=== PATIENT | female | born 1985 ===

== ENCOUNTER 2017-07-24 21:54 | Emergency (ER) | payer MEDICAID ==
[2017-07-24 21:54] VITALS: BMI 21.5
[2017-07-24 21:59] VITALS: BP 122/78; PULSE 86; RESP 16; TEMP 98; O2SAT 97
--- NOTE | 2017-07-24 22:04 | ED PDOC ---
Upper Extremity Pain/Injury Time Seen by Provider: 07/24/17 22:02 Chief Complaint (Nursing): Upper Extremity Problem/Injury Chief Complaint (Provider): right arm pain, neck pain History Per: Patient Additional Complaint(s): 31-year-old right-hand dominant female presents with pain to right shoulder and right-side of neck that started last week. Patient denies trauma or injury but states that she carries a backpack on the right side of her back on a regular basis. Patient has been taking Advil which has provided minimal relief pain. No associated chest pain, shortness of breath or dyspnea on exertion. Patient denies any numbness or tingling to right arm. Past Medical History Reviewed: Historical Data, Nursing Documentation, Vital Signs Vital Signs: Last Vital Signs Temp 98.0 F 07/24/17 21:57 Pulse 86 07/24/17 21:57 Resp 16 07/24/17 21:57 BP 122/78 07/24/17 21:57 Pulse Ox 97 07/24/17 21:57 - Medical History PMH: Asthma, Hypothyroidism - Surgical History Other surgeries: tubal ligation - Family History Family History: States: No Known Family Hx - Living Arrangements Living Arrangements: With Family - Social History Current smoker - smoking cessation education provided: Yes Alcohol: Social Drugs: Denies - Home Medications Home Medications: Ambulatory Orders Medication Instructions Recorded Albuterol Sulfate [Albuterol 1 puff NEB BID 09/15/14 Sulfate Hfa] Cetirizine HCl/Pse HCl [Zyrtec-D 5 1 tab PO DAILY 09/15/14 mg-120 mg] Fluticasone Nasal [Flonase] 2 spray SHANNEN Q12H 09/15/14 Fluticasone/Salmeterol 250/50 1 puff IH Q12H 09/15/14 [Advair Diskus 250/50] Levothyroxine [Synthroid] 0.05 mg PO DAILY 09/15/14 Multivitamin and [id number] 1 tab PO DAILY 09/15/14 [] Guaifenesin [Robitussin] 100 mg PO Q4H PRN #0 ml 09/17/14 predniSONE [predniSONE Tab] 10 mg PO DAILY #0 tab 09/17/14 Montelukast [Singulair] 10 mg PO DAILY 01/23/15 Vitamins6 [ 1 tab PO DAILY 01/23/15 Vitamin] Albuterol HFA [Ventolin HFA 90 2 puff IH Q4 PRN #1 inh 01/22/16 mcg/actuation (8 g)] Prednisone 50 mg PO DAILY #4 tablet 01/22/16 traMADol [Ultram] 50 mg PO Q6H PRN #15 tab 09/27/16 Cyclobenzaprine [Cyclobenzaprine 10 mg PO TID PRN #20 tab 07/24/17 HCl] Naproxen [Naprosyn] 500 mg PO BID #20 tab 07/24/17 traMADol [Ultram] 50 mg PO TID PRN #15 tab 07/24/17 - Allergies Allergies/Adverse Reactions: Allergies Allergy/AdvReac Type Severity Reaction Status Date / Time No Known Allergies Allergy Verified 09/15/14 11:17 Review of Systems ROS Statement: Except As Marked, All Systems Reviewed And Found Negative Cardiovascular: Negative for: Chest Pain Musculoskeletal: Positive for: Neck Pain, Shoulder Pain (right) Neurological: Negative for: Headache Physical Exam - Reviewed Nursing Documentation Reviewed: Yes Vital Signs Reviewed: Yes - Physical Exam Appears: Positive for: Well, Non-toxic, No Acute Distress Skin: Negative for: Rash Eye Exam: Positive for: Normal appearance Neck: Positive for: Pain On Movement Of Neck (Muscle spasm and tenderness to right lateral neck) Cardiovascular/Chest: Positive for: Regular Rate, Rhythm Respiratory: Positive for: Normal Breath Sounds Extremity: Positive for: Other (Diffuse tenderness to right anterior shoulder, full range of motion with pain, 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) Neurologic/Psych: Positive for: Alert, Oriented - Laboratory Results Urine POC: Negative (Patient declined test, she is currently menstruating and has also had tubal ligation, she is certain she is not ) - ECG O2 Sat by Pulse Oximetry: 97 Pulse Ox Interpretation: Normal - Other Rad Right shoulder and cervical spine x-ray X-Ray: Interpreted by Me, Viewed By Me X-Ray Interpretation: no fx, no dis Medical Decision Making Medical Decision Makin31 year old female with right shoulder and neck pain Plan: PO tramadol and flexeril X-ray right shoulder, cervical spine Patient states she feels better after medications given for pain. She is aware of x-ray results. All questions answered. Prescriptions provided for Naprosyn, Flexeril and tramadol. Patient was referred to orthopedist on-call for follow- up. Disposition - Clinical Impression Clinical Impression: Shoulder sprain, Cervical strain - Patient ED Disposition Is Patient to be Admitted: No Counseled Patient/Family Regarding: Studies Performed, Diagnosis, Need For Followup, Rx Given - Disposition Referrals: Tulio Alexander III, MD [Staff Provider] - Disposition: Routine/Home Disposition Time: 23:23 Condition: STABLE Additional Instructions: Take prescription medications as directed as needed for pain. Follow-up with orthopedist for any persistent symptoms. Prescriptions: Cyclobenzaprine [Cyclobenzaprine HCl] 10 mg PO TID PRN #20 tab PRN Reason: Muscle Spasm Naproxen [Naprosyn] 500 mg PO BID #20 tab traMADol [Ultram] 50 mg PO TID PRN #15 tab PRN Reason: Pain, Moderate (4-7) Instructions: Cervical Strain (DC), Shoulder Sprain (ED) Forms: [employer] Connect (Micronesian)
--- NOTE | 2017-07-25 11:11 | RAD ---
PROCEDURE: Cervical Spine Radiographs. HISTORY: Pain. COMPARISON: None. FINDINGS: BONES: Alignment maintained. No fracture. Dens Intact. DISC SPACES: Normal. SOFT TISSUES: Normal. No prevertebral soft tissue swelling. OTHER FINDINGS: None. IMPRESSION: Normal cervical spine radiographs Concordant results with the preliminary interpretation rendered by the emergency department physician procedure.
--- NOTE | 2017-07-25 11:14 | RAD ---
PROCEDURE: Radiographs of the Right Shoulder HISTORY: trauma Presenting with right upper extremity pain COMPARISON: None FINDINGS: BONES: Normal. No fracture. JOINTS: Normal. Glenohumeral and acromioclavicular joints preserved. No osteoarthritis. SOFT TISSUES: Normal. OTHER FINDINGS: None. IMPRESSION: Normal radiographs of the right shoulder. Concordant results with the preliminary interpretation rendered by the emergency department physician procedure.
== END 2017-07-24 23:47 | disposition home or self-care (01) ==
LOC: H.ER 21:54
DX: S16.1XXA Strain of muscle, fascia and tendon at neck level, initial encounter (principal); S43.401A Unspecified sprain of right shoulder joint, initial encounter; X50.9XXA Other and unspecified overexertion or strenuous movements or postures, initial encounter; Y92.89 Other specified places as the place of occurrence of the external cause; E03.9 Hypothyroidism, unspecified; J45.909 Unspecified asthma, uncomplicated

== ENCOUNTER 2017-08-29 08:59 | Emergency (ER) | payer MEDICAID ==
[2017-08-29 09:00] VITALS: BMI 21.5
[2017-08-29 09:19] VITALS: BP 114/69; RESP 22; TEMP 97; O2SAT 99
[2017-08-29] MEDS: Albuterol-Ipratrop 3 mg / 0.5 (3 ml) UD INH STA (09:47)
[2017-08-29 10:30] LABS: BASO % 1.2 % (0.0-2.0); EOS # 0.3 K/uL (0.0-0.7); EOS % 9.1 % (0.0-4.0); HEMATOCRIT 40.8 % (34.0-47.0); LYMPH # 1.7 K/uL (1.0-4.3); MEAN CELL VOLUME 91.9 fl (81.0-99.0); MEAN CORPUSCULAR HGB CONC 33.8 g/dL (33.0-37.0); MEAN PLATELET VOLUME 9.5 fl (7.2-11.7); MONO # 0.4 K/uL (0.0-0.8); MONO % 11.2 % (0.0-10.0); NEUT # 1.3 K/uL (1.8-7.0); NEUT % 33.5 % (50.0-75.0); NRBC % 1.6 % (0.0-0.0); RED CELL DISTRIBUTION WIDTH 12.8 % (11.5-14.5); WHITE BLOOD COUNT 3.8 K/uL (4.8-10.8)
[2017-08-29 10:34] VITALS: PULSE 69
[2017-08-29 10:34] LABS: ALB/GLOB RATIO 1.3 (1.0-2.1); ALKALINE PHOSPHATASE 56 U/L (38-126); ALT/SGPT 37 U/L (9-52); AST/SGOT 20 U/L (14-36); BILIRUBIN,TOTAL 0.3 mg/dl (0.2-1.3); BLOOD UREA NITROGEN 14 mg/dl (7-17); CALCIUM 9.2 mg/dL (8.4-10.2); CARBON DIOXIDE 25 mmol/L (22-30); CHLORIDE 106 mmol/L (98-107); GFR AFRICAN-AMERICAN > 60; GLUCOSE,RANDOM 92 mg/dL (65-105); PARTIAL THROMBOPLASTIN TIME 28.4 Seconds (25.6-37.1); SODIUM 140 mmol/l (132-148)
--- NOTE | 2017-08-29 12:07 | ED PDOC ---
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 Denies chest pain, hemoptysis, fever or syncope. Denies orthopnea or leg pain/ edema. Not on control and denies blood clots or cardiac disease in her or family history. She used her asthma pump after palpitations started and felt a little better. Went to her school RN who told her to come to ED. Past Medical History Reviewed: Historical Data, Nursing Documentation, Vital Signs Vital Signs: Last Vital Signs Temp 97 F L 08/29/17 09:18 Pulse 69 08/29/17 10:31 Resp 22 08/29/17 09:18 BP 114/69 08/29/17 09:18 Pulse Ox 99 08/29/17 09:18 - Medical History PMH: Asthma, Hypothyroidism Denies: HIV, Chronic Kidney Disease - Family History Family History: States: Unknown Family Hx - Living Arrangements Living Arrangements: With Family - Social History Current smoker - smoking cessation education provided: No - Home Medications Home Medications: Ambulatory Orders Medication Instructions Recorded Albuterol Sulfate [Albuterol 1 puff NEB BID 09/15/14 Sulfate Hfa] Cetirizine HCl/Pse HCl [Zyrtec-D 5 1 tab PO DAILY 09/15/14 mg-120 mg] Fluticasone Nasal [Flonase] 2 spray SHANNEN Q12H 09/15/14 Fluticasone/Salmeterol 250/50 1 puff IH Q12H 09/15/14 [Advair Diskus 250/50] Levothyroxine [Synthroid] 0.05 mg PO DAILY 09/15/14 Multivitamin and [id number] 1 tab PO DAILY 09/15/14 [] Guaifenesin [Robitussin] 100 mg PO Q4H PRN #0 ml 09/17/14 predniSONE [predniSONE Tab] 10 mg PO DAILY #0 tab 09/17/14 Montelukast [Singulair] 10 mg PO DAILY 01/23/15 Vitamins6 [ 1 tab PO DAILY 01/23/15 Vitamin] Albuterol HFA [Ventolin HFA 90 2 puff IH Q4 PRN #1 inh 01/22/16 mcg/actuation (8 g)] Prednisone 50 mg PO DAILY #4 tablet 01/22/16 traMADol [Ultram] 50 mg PO Q6H PRN #15 tab 09/27/16 Cyclobenzaprine [Cyclobenzaprine 10 mg PO TID PRN #20 tab 07/24/17 HCl] Naproxen [Naprosyn] 500 mg PO BID #20 tab 07/24/17 traMADol [Ultram] 50 mg PO TID PRN #15 tab 07/24/17 - Allergies Allergies/Adverse Reactions: Allergies Allergy/AdvReac Type Severity Reaction Status Date / Time No Known Allergies Allergy Verified 09/15/14 11:17 Review of Systems ROS Statement: Except As Marked, All Systems Reviewed And Found Negative Constitutional: Negative for: Fever, Chills Cardiovascular: Positive for: Palpitations. Negative for: Chest Pain, Orthopnea Respiratory: Positive for: Shortness of Breath. Negative for: Cough, Hemoptysis , SOB with Exertion, Pleuritic Pain, Sputum, Wheezing Gastrointestinal: Negative for: Nausea, Vomiting, Abdominal Pain Genitourinary Female: Negative for: Dysuria, Frequency Musculoskeletal: Negative for: Neck Pain, Back Pain Skin: Negative for: Rash, Lesions, Jaundice Neurological: Negative for: Weakness, Numbness, Headache, Dizziness Psych: Negative for: Depression Physical Exam - Reviewed Nursing Documentation Reviewed: Yes Vital Signs Reviewed: Yes - Physical Exam Appears: Positive for: Well, Non-toxic, No Acute Distress Head Exam: Positive for: ATRAUMATIC, NORMAL INSPECTION, NORMOCEPHALIC Skin: Positive for: Normal Color, Warm, DRY Eye Exam: Positive for: EOMI, Normal appearance, PERRL ENT: Positive for: Normal ENT Inspection Neck: Positive for: Normal, Painless ROM Cardiovascular/Chest: Positive for: Regular Rate, Rhythm. Negative for: Bradycardia, Tachycardia, Irregularly Irregular Respiratory: Positive for: Normal Breath Sounds. Negative for: Wheezing, Respiratory Distress Gastrointestinal/Abdominal: Positive for: Bowel Sounds, Soft. Negative for: Tenderness, Guarding Back: Positive for: Normal Inspection Extremity: Positive for: Normal ROM. Negative for: Tenderness, Swelling Neurologic/Psych: Positive for: Alert, Oriented - Laboratory Results Result Diagrams: 08/29/17 10:20 08/29/17 10:20 - ECG O2 Sat by Pulse Oximetry: 99 Medical Decision Making Medical Decision Making: surveillance monitor reveals sinus rhythm in 70s no ectopy workup for palpitations w history asthma initiated duoneb ordered, labs/ trop, BNP, DDimer/ CXR. Monitored approx 2.5 hrs without noted arrythmia or return of symptoms. Labs are unremarkable DDimer, trop and BNP within normal limits No tachycardia, current SOB or chest pain to suggest need for acute imaging chest. She has albuterol and steroids at home if asthma were to return, refer cardio for palpitations DC from ED. Disposition - Clinical Impression Clinical Impression: Asthma, Palpitations - Patient ED Disposition Is Patient to be Admitted: No Counseled Patient/Family Regarding: Studies Performed, Diagnosis, Need For Followup - Disposition Referrals: Provider TBD, [Primary Care Provider] - Giovany Batres MD [Staff Provider] - Disposition: Routine/Home Disposition Time: 12:09 Condition: STABLE Additional Instructions: Return to ER for any new or worsening symptoms. Take medications as directed. See cardiology for further testing. Instructions: Palpitations (ED), Asthma (ED) Forms: [employer] (Vietnamese)
--- NOTE | 2017-08-29 14:14 | RAD ---
HISTORY: chest pain COMPARISON: Chest radiographs 12/24/2013 TECHNIQUE: Chest PA and lateral FINDINGS: LUNGS: No active pulmonary disease. PLEURA: No significant pleural effusion identified. No pneumothorax apparent. CARDIOVASCULAR: Normal. OSSEOUS STRUCTURES: No significant abnormalities. VISUALIZED UPPER ABDOMEN: Normal. OTHER FINDINGS: None. IMPRESSION: No interval acute cardiopulmonary disease appreciated.
--- NOTE | 2017-08-30 15:58 | CARD ---
APPROVED REPORT EKG Measurement Heart [id number] <Conclusion> Normal sinus rhythm Normal ECG
== END 2017-08-29 12:20 | disposition home or self-care (01) ==
LOC: SUPCPDRO 08:59 → H.ER 08:59
DX: J45.909 Unspecified asthma, uncomplicated (principal); R00.2 Palpitations; E03.9 Hypothyroidism, unspecified

== ENCOUNTER 2018-02-19 18:59 | Emergency (ER) | payer MEDICAID ==
[2018-02-19 19:00] VITALS: BMI 21.5
[2018-02-19] MEDS ORDERED: Morphine 4 MG/ML VIAL ONE (19:30)
[2018-02-19 20:25] LABS: BASO # 0.1 K/uL (0.0-0.2); BASO % 1.1 % (0.0-2.0); EOS # 0.7 K/uL (0.0-0.7); EOS % 13.9 % (0.0-4.0); HEMOGLOBIN 15.3 g/dL (12.0-16.0); LYMPH # 1.7 K/uL (1.0-4.3); LYMPH % 31.5 % (20.0-40.0); MEAN CELL VOLUME 94.2 fl (81.0-99.0); MEAN CORPUSCULAR HEMOGLOBIN 31.7 pg (27.0-31.0); MEAN CORPUSCULAR HGB CONC 33.6 g/dL (33.0-37.0); MEAN PLATELET VOLUME 9.4 fl (7.2-11.7); MONO # 0.7 K/uL (0.0-0.8); MONO % 12.9 % (0.0-10.0); NEUT # 2.2 K/uL (1.8-7.0); NEUT % 40.6 % (50.0-75.0); NRBC % 0.1 % (0.0-0.0); RBC 4.83 Mil/uL (3.80-5.20); RED CELL DISTRIBUTION WIDTH 13.6 % (11.5-14.5); WHITE BLOOD COUNT 5.3 K/uL (4.8-10.8)
[2018-02-19 20:29] LABS: ALB/GLOB RATIO 1.2 (1.0-2.1); ALBUMIN 4.1 g/dL (3.5-5.0); ALT/SGPT 31 U/L (9-52); AST/SGOT 28 U/L (14-36); BLOOD UREA NITROGEN 11 mg/dl (7-17); CALCIUM 8.9 mg/dL (8.4-10.2); GFR AFRICAN-AMERICAN > 60; GFR NON-AFRICAN AMERICAN > 60
--- NOTE | 2018-02-19 21:10 | ED PDOC ---
HPI: Abdomen Time Seen by Provider: 02/19/18 19:13 Chief Complaint (Nursing): Abdominal Pain Chief Complaint (Provider): RLQ pain History Per: Patient Onset/Duration Of Symptoms: Sudden Onset (about 45 min prior to arrival) Location Of Pain/Discomfort: RLQ (radiating to rectal area) Quality Of Discomfort: Sharp Associated Symptoms: denies: Fever, Chills, Nausea, Vomiting, Diarrhea, Urinary Symptoms Exacerbating Factors: Movement, Upright Position, Walking, Other (sitting) Alleviating Factors: None Additional Complaint(s): similar to previous episode when diagnosed with ovarian cyst PMD Dr Pérez [place] 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 Past Medical History Reviewed: Historical Data, Nursing Documentation, Vital Signs Vital Signs: Last Vital Signs Temp 99.5 F 02/19/18 19:07 Pulse 102 H 02/19/18 19:07 Resp 18 02/19/18 19:07 BP 142/94 H 02/19/18 19:07 Pulse Ox 96 02/19/18 21:21 - Medical History PMH: Asthma, Hypothyroidism Denies: HIV, Chronic Kidney Disease - Surgical History Other surgeries: Tubal ligation - Family History Family History: States: Unknown Family Hx - Social History Current smoker - smoking cessation education provided: Yes - Home Medications Home Medications: Ambulatory Orders Medication Instructions Recorded Albuterol Sulfate [Albuterol 1 puff NEB BID 09/15/14 Sulfate Hfa] Cetirizine HCl/Pse HCl [Zyrtec-D 5 1 tab PO DAILY 09/15/14 mg-120 mg] Fluticasone Nasal [Flonase] 2 spray SHANNEN Q12H 09/15/14 Fluticasone/Salmeterol 250/50 1 puff IH Q12H 09/15/14 [Advair Diskus 250/50] Levothyroxine [Synthroid] 0.05 mg PO DAILY 09/15/14 Multivitamin and [id number] 1 tab PO DAILY 09/15/14 [] Guaifenesin [Robitussin] 100 mg PO Q4H PRN #0 ml 09/17/14 predniSONE [predniSONE Tab] 10 mg PO DAILY #0 tab 09/17/14 Montelukast [Singulair] 10 mg PO DAILY 01/23/15 Vitamins6 [ 1 tab PO DAILY 01/23/15 Vitamin] Albuterol HFA [Ventolin HFA 90 2 puff IH Q4 PRN #1 inh 01/22/16 mcg/actuation (8 g)] Prednisone 50 mg PO DAILY #4 tablet 01/22/16 traMADol [Ultram] 50 mg PO Q6H PRN #15 tab 09/27/16 Cyclobenzaprine [Cyclobenzaprine 10 mg PO TID PRN #20 tab 07/24/17 HCl] Naproxen [Naprosyn] 500 mg PO BID #20 tab 07/24/17 traMADol [Ultram] 50 mg PO TID PRN #15 tab 07/24/17 Acetaminophen with Codeine 2 tab PO Q4H PRN #20 tab 02/19/18 [Tylenol with Codeine No. 3 300 mg-30 mg] Ibuprofen [Motrin Tab] 600 mg PO Q8 PRN #30 tab 02/19/18 - Allergies Allergies/Adverse Reactions: Allergies Allergy/AdvReac Type Severity Reaction Status Date / Time No Known Allergies Allergy Verified 09/15/14 11:17 Review of Systems ROS Statement: Except As Marked, All Systems Reviewed And Found Negative (and as per HPI) Gastrointestinal: Positive for: Abdominal Pain, Rectal Pain Physical Exam - Reviewed Nursing Documentation Reviewed: Yes Vital Signs Reviewed: Yes - Physical Exam Appears: Positive for: Uncomfortable, In Acute Distress Head Exam: Positive for: ATRAUMATIC, NORMOCEPHALIC Skin: Positive for: Warm, Dry Eye Exam: Positive for: EOMI, PERRL Neck: Positive for: Painless ROM, Supple Respiratory: Negative for: Accessory Muscle Use, Respiratory Distress Gastrointestinal/Abdominal: Positive for: Soft, Tenderness (RLQ ttp). Negative for: Mass, Distended, Guarding, Rebound Back: Positive for: Normal Inspection. Negative for: Decreased ROM Extremity: Positive for: Normal ROM. Negative for: Deformity Lymphatic: Negative for: Inguinal Node Tenderness Neurologic/Psych: Positive for: Alert. Negative for: Motor/Sensory Deficits - Laboratory Results Result Diagrams: 02/19/18 21:05 02/19/18 20:18 - ECG O2 Sat by Pulse Oximetry: 96 - Progress ED Course And Treament: EXAM: US Pelvis, Transvaginal CLINICAL HISTORY: 32 years old, female; Pain; Pelvic pain; Additional info: Left pelvic pain TECHNIQUE: Real-time transvaginal pelvic ultrasound (complete) with image documentation. Transvaginal imaging was used for better evaluation of the endometrium and adnexa. COMPARISON: No relevant prior studies available. FINDINGS: Uterus/cervix: Unremarkable. Normal endometrial stripe thickness 11 mm. A posterior wall uterine fibroid is seen 1.5 cm x 1.3 cm x 1.3 cm. Uterus measures 8.7 cm x 4.3 cm x 4.6 cm. Right ovary: Simple cyst 5.3 cm x 4 cm before 0.3 cm No mass. Normal blood flow. RIGHT ovary measures 6 cm x 4.7 cm x 5 cm Left ovary: Follicular cysts 1.4 cm x 1.2 cm 1.4 cm. No mass. Normal blood flow. LEFT ovary measures 2.8 cm x 2.2 cm x 2.5 cm. Free fluid: No free fluid. IMPRESSION: 1. Uterine fibroid 2. Otherwise negative exam of the uterus and endometrium. 3. Bilateral ovarian simple cysts. Thank you for allowing us to participate in the care of your patient. Dictated and Authenticated by: Tulio Padilla MD 02/19/2018 8:18 PM Eastern Time ([place] & [place]) Disposition - Clinical Impression Clinical Impression: Ovarian cyst Counseled Patient/Family Regarding: Studies Performed, Diagnosis, Need For Followup, Rx Given - Disposition [facility] (CALL [facility] TOMORROW FOR FOLLOW UP APPOINTMENT WITHIN A WEEK) Disposition: Routine/Home Disposition Time: 21:09 Condition: IMPROVED Prescriptions: Acetaminophen with Codeine [Tylenol with Codeine No. 3 300 mg-30 mg] 2 tab PO Q4H PRN #20 tab PRN Reason: Pain Ibuprofen [Motrin Tab] 600 mg PO Q8 PRN #30 tab PRN Reason: Pain, Moderate (4-7) Instructions: Ovarian Cysts, Opioids for Short-Term Treatment of Pain Forms: [employer] (Italian)
[2018-02-19 21:16] LABS: PARTIAL THROMBOPLASTIN TIME 28.6 Seconds (25.6-37.1); PROTHROMBIN TIME 10.9 Seconds (9.8-13.1)
[2018-02-19 21:32] VITALS: BP 135/84; PULSE 89; RESP 15; TEMP 98.6; O2SAT 100
--- NOTE | 2018-02-20 12:15 | US ---
HISTORY: LEFT pelvic pain right-sided pelvic pain LMP 01/22/2018. COMPARISON: None available. TECHNIQUE: Transvaginal only. Real -time technique with 2D, duplex and color Doppler FINDINGS: UTERUS: Measures 4.3 x 4.6 x 8.7 cm. Normal in size, heterogeneous echo characteristics. Location of fibroid and size: Posterior, submucosal 1.3 x 1.5 x 1.5 cm ENDOMETRIUM: Measures 11.0 mm in diameter. No ultrasound findings to suggest gestational sac, fluid, debris, mass or polyp or other pathologic process within the endometrium. CERVIX: No cervical abnormality identified. RIGHT OVARY: Measures 4.7 x 5 x 6 cm. No solid mass. Normal flow. Simple cyst 4.3 x 3.9 x 5.3 LEFT OVARY: Measures 2.8 x 2.2 x 2.5 cm. No solid mass. Normal flow. Solitary cyst 1.4 x 1.2 cm FREE FLUID: No significant free fluid noted. OTHER FINDINGS: None. IMPRESSION: Mildly enlarged heterogeneous uterus. Dominant simple cyst right ovary. Concordant results (preliminary interpretation) provided by [facility]. Procedure Completed: 19:48 Preliminary ([facility]) Report: Dictated and Authenticated: 20:16 Final Interpretation: 12:13 February 20, 2018.
== END 2018-02-19 21:32 | disposition home or self-care (01) ==
LOC: H.ER 18:59
DX: N83.201 Unspecified ovarian cyst, right side (principal); N83.202 Unspecified ovarian cyst, left side; D25.9 Leiomyoma of uterus, unspecified; E03.9 Hypothyroidism, unspecified; F17.200 Nicotine dependence, unspecified, uncomplicated; J45.909 Unspecified asthma, uncomplicated
CPT/HCPCS: 76830; 80053; 81025; 83735; 84100; 84702; 85025; 85610; 85730; 86850; 86900; 96374; 99284; J2270